=== PATIENT | male | born 1960 | race Caucasian/White ===

== ENCOUNTER 2021-09-26 07:54 | Emergency (ER) | payer BC ==
[~2021-09-26] VITALS: Ht 177.8 cm; Wt 84.0 kg
[2021-09-26] MEDS ORDERED: normal saline 1000ml 1,000 ML IV ONE (08:45)
[2021-09-26] MEDS ORDERED: morphine 4 MG/ML inj SYRINge IV ONE ×3 (08:45→10:55)
[2021-09-26] MEDS ORDERED: ondansetron/PF 4mg/2ml inj IV ONE (08:45)
--- NOTE | 2021-09-26 08:50 | NUR ---
PT SON CAME TO NURSES STATION TO INFORM ABOUT HIS DAD FEELING NAUSEOUS ,WENT TO SEE THE PT ,PT GOT BRADYCARDIC HR 36 ,DIAPHORTIC ,COOL AND PASSED OUT FOR FEW SEC.CALLED FOR EXTRA HELP AND MD IN ROOM.DR DC GAVE THE VERBAL ORDERS FOR MORPHINE4 MG IVONCE,ZOFRAN 4 MG IV AND N.S BOLUS.
[2021-09-26] MEDS ORDERED: OXYC-145 PO (09:28)
[2021-09-26] MEDS ORDERED: oxyCODONE/APAP 5-325mg tablet PO ONE (12:05)
[2021-09-26 12:24] VITALS: BP 112/76
== END 2021-09-26 12:27 | disposition home or self-care (01) ==
LOC: ER 07:55
DX: S42.201A Unspecified fracture of upper end of right humerus, initial encounter for closed fracture (principal); S52.614A Nondisplaced fracture of right ulna styloid process, initial encounter for closed fracture; M25.511 Pain in right shoulder; M25.531 Pain in right wrist; Z79.899 Other long term (current) drug therapy; W01.0XXA Fall on same level from slipping, tripping and stumbling without subsequent striking against object, initial encounter; Y93.89 Activity, other specified; Y92.89 Other specified places as the place of occurrence of the external cause; Y99.8 Other external cause status
CPT/HCPCS: 73020; 73110; 96374; 96375; 96376; 99285; J2270; J2405; J7030